=== PATIENT | female | born 1960 | race Two or more races ===

== ENCOUNTER 2017-04-21 20:14 | Emergency (ER) | payer OTHER ==
[2017-04-21 21:05] LABS: ABSOLUTE BASOPHILS # (AUTO) 0.1 10^3/uL (0.0-0.2); ABSOLUTE EOSINOPHILS # (AUTO) 0.5 10^3/uL (0.0-0.6); ABSOLUTE LYMPHOCYTES (AUTO) 2.6 10^3/uL (0.5-4.7); ABSOLUTE MONOCYTES (AUTO) 0.7 10^3/uL (0.1-1.4); ABSOLUTE NEUT (AUTO) 5.6 10^3/uL (1.7-8.2); BASOPHILS % (AUTO) 0.7 % (0-2); EOSINOPHILS % (AUTO) 5.5 % (0-6); HEMOGLOBIN 11.4 g/dL (12.0-15.5); HGB HCT DIFFERENCE -0.8; LYMPHOCYTES % (AUTO) 27.3 % (13-45); MEAN CORPUSCULAR HGB CONC 32.5 g/dL (32.0-36.0); MEAN CORPUSCULAR VOLUME 86 fl (80-97); MONOCYTES % (AUTO) 7.6 % (3-13); RED BLOOD COUNT 4.06 10^6/uL (3.72-5.28); RED CELL DISTRIBUTION WIDTH 13.9 % (11.5-14.0); SEGMENTED NEUTROPHILS % (AUTO) 58.9 % (42-78); WHITE BLOOD COUNT 9.5 10^3/uL (4.0-10.5)
[2017-04-21] MEDS ORDERED: NORMAL SALINE 1000 ML 1,000 ML IV ONE (21:14)
--- NOTE | 2017-04-21 21:17 | ER Document Report ---
ED General - General Chief Complaint: General Weakness Stated Complaint: BLOOD PRESSURE PROBLEMS/WEAKNESS Time Seen by Provider: 04/21/17 20:29 Notes: Patient is a 56-year-old female with a past medical history of hypertension, anxiety and panic attacks who presents with a multitude of complaints including generalized weakness, fatigue, lightheadedness, anxiety, palpitations, and diffuse body paresthesias. States that the symptoms been ongoing for several months but worse today. States that her symptoms are worsened by arguing with her children and do resolve spontaneously. She has not seen a primary care doctor regarding today's concerns. at the bedside reports that he took the patient's blood pressure at home during today's episode and thought that the blood pressures were different in both arms and is concerned about this finding. Patient denies any significant symptoms at the time of my assessment. TRAVEL OUTSIDE OF THE [place] IN LAST 30 DAYS: No Past Medical History - General Information source: Patient - Social History Smoking Status: Never Smoker Frequency of alcohol use: None Drug Abuse: None Lives with: Spouse/Significant other Family History: Reviewed & Not Pertinent Patient has suicidal ideation: No Patient has homicidal ideation: No - Past Medical History Cardiac Medical History: Reports: Hx Hypercholesterolemia, Hx Hypertension Renal/ Medical History: Denies: Hx Peritoneal Dialysis - Immunizations Immunizations up to date: Yes Hx Diphtheria, Pertussis, Tetanus Vaccination: No Review of Systems - Review of Systems Notes: Constitutional: Negative for fever. HENT: Negative for sore throat. Eyes: Negative for visual changes. Cardiovascular: Negative for chest pain. Respiratory: Negative for shortness of breath. Gastrointestinal: Negative for abdominal pain, vomiting or diarrhea. Genitourinary: Negative for dysuria. Musculoskeletal: Negative for back pain. Skin: Negative for rash. Neurological: Negative for headaches, weakness or numbness. Positive for paresthesias 10 point ROS negative except as marked above and in HPI. Physical Exam - Vital signs Vitals: Pulse Ox 94 04/21/17 20:35 Interpretation: Normal Notes: PHYSICAL EXAMINATION: GENERAL: Well-appearing, well-nourished and in no acute distress. HEAD: Atraumatic, normocephalic. EYES: Pupils equal round and reactive to light, extraocular movements intact, sclera anicteric, conjunctiva are normal. ENT: nares patent, oropharynx clear without exudates. Moist mucous membranes. NECK: Normal range of motion, supple without lymphadenopathy LUNGS: Breath sounds clear to auscultation bilaterally and equal. No wheezes rales or rhonchi. HEART: Regular rate and rhythm without murmurs ABDOMEN: Soft, nontender, normoactive bowel sounds. No guarding, no rebound. No masses appreciated. EXTREMITIES: Normal range of motion, no pitting or edema. No cyanosis. NEUROLOGICAL: No focal neurological deficits. Moves all extremities spontaneously and on command. PSYCH: Anxious. SKIN: Warm, Dry, normal turgor, no rashes or lesions noted. Course - Re-evaluation Re-evalutation: 04/21/17 21:14 Patient presents with multiple vague complaints that did not appear to be concerning for any acute life-threatening pathology. Vitals are within normal limits at triage and at time of discharge. Physical examination is unremarkable. Patient has tolerated oral intake without difficulty. Patient was not noted to be in distress at any point during their ER visit. Apparently the was concerned about discordant blood pressures in the bilateral upper extremities. This is not present at the time of my assessment as I measured blood pressures in the bilateral upper extremities at the bedside myself with less than 2 mmHg difference bilaterally. Echocardiogram at the bedside without evidence of a pericardial effusion or tamponade. Laboratories including a single troponin are normal. At this time, based on the reassuring evaluation, I do not suspect an acute FL, pulmonary embolus, aortic dissection, acute intra-abdominal pathology, stroke, or sepsis. Will discharge with return precautions and follow-up recommendations. Verbal discharge instructions given a the bedside and opportunity for questions given. Medication warnings reviewed. Patient is in agreement with this plan and has verbalized understanding of return precautions and the need for primary care follow-up in the next 24-72 hours. - Vital Signs Vital signs: Temp Pulse Resp BP Pulse Ox 27 H 107/61 100 04/21/17 22:31 04/21/17 22:31 04/21/17 22:31 - Laboratory Result Diagrams: 04/21/17 20:15 04/21/17 21:07 Laboratory results interpreted by me: 04/21/17 04/21/17 04/21/17 20:15 21:07 22:01 Hgb 11.4 L Hct 35.0 L Chloride 109 H BUN 35 H Est GFR (Non-Af Amer) 49 L Urine Protein 30 H - Diagnostic Test Radiology reviewed: Image reviewed, Reports reviewed Radiology results interpreted by me: 04/22/17 03:43 Chest x-ray: No acute infiltrate or pneumothorax. No widened mediastinum - EKG Interpretation by Me Additional EKG results interpreted by me: 04/22/17 03:43 Normal sinus rhythm. Rate 90. No ST elevations or depressions. QTC is 436. Discharge - Discharge Clinical Impression: Generalized weakness Fatigue Qualifiers: Fatigue type: unspecified Qualified Code(s): R53.83 - Other fatigue Condition: Good Disposition: HOME, SELF-CARE Additional Instructions: All of your blood work, chest x-ray, bedside echocardiogram and urinalysis are all normal. Please follow-up with your primary care doctor regarding her mildly low blood pressure today and the need for ongoing blood pressure management with the medications you are taking. Please return to the emergency room immediately if you experience any concerning symptoms including high fevers , severe headache, chest pain, difficulty breathing, abdominal pain, slurred speech, numbness or weakness in your arms or legs, or any other symptom that concerns you.
[2017-04-21 21:34] LABS: BLOOD UREA NITROGEN 35 mg/dL (7-20); CALCIUM 9.4 mg/dL (8.4-10.2); CARBON DIOXIDE 23 mmol/L (22-30); CREATININE RESULT 1.13 mg/dL (0.52-1.25); GLUCOSE 108 mg/dL (75-110); POTASSIUM 4.1 mmol/L (3.6-5.0); SODIUM 143.7 mmol/L (137-145)
[2017-04-21 21:37] LABS: ANION GAP 12 (5-19); CHLORIDE 109 mmol/L (98-107)
--- NOTE | 2017-04-21 21:37 | RADIOLOGY REPORT (SQ) ---
EXAM DESCRIPTION: CHEST SINGLE VIEW COMPLETED DATE/TIME: 04/21/2017 9:29 pm REASON FOR STUDY: sob COMPARISON: 07/23/2015 EXAM PARAMETERS: NUMBER OF VIEWS: One view. TECHNIQUE: Single frontal radiographic view of the chest acquired. RADIATION DOSE: NA LIMITATIONS: None. FINDINGS: LUNGS AND PLEURA: No opacities, masses or pneumothorax. No pleural effusion. MEDIASTINUM AND HILAR STRUCTURES: No masses. Contour normal. HEART AND VASCULAR STRUCTURES: Heart normal in size. Normal vasculature. BONES: No acute findings. HARDWARE: Left breast implant noted. EKG leads overlie the chest. OTHER: No other significant finding. IMPRESSION: NO ACUTE RADIOGRAPHIC FINDING IN THE CHEST. TECHNICAL DOCUMENTATION: JOB ID: [id number]
[2017-04-21 22:15] LABS: APPEARANCE,URINE SLIGHTLY-CLOUDY; BILIRUBIN,URINE NEGATIVE (NEGATIVE); GLUCOSE, URINE NEGATIVE (NEGATIVE); KETONES,URINE NEGATIVE (NEGATIVE); LEUKOCYTE ESTERASE,URINE NEGATIVE (NEGATIVE); NITRITE,URINE NEGATIVE (NEGATIVE); PROTEIN,URINE 30 mg/dL (NEGATIVE); URINE SPECIFIC GRAVITY 1.017; UROBILINOGEN,URINE NEGATIVE mg/dL (<2.0)
[2017-04-21 22:34] VITALS: BP 107/61
--- NOTE | 2017-04-21 23:45 | EKG REPORT ---
SEVERITY:- NORMAL ECG - SINUS RHYTHM : Confirmed by: Murali Sandoval 21-Apr-2017 23:44:26
== END 2017-04-21 22:39 | disposition home or self-care (01) ==
LOC: ER 20:14
DX: R53.1 Weakness (principal); R53.83 Other fatigue; R42 Dizziness and giddiness; R00.2 Palpitations; I10 Essential (primary) hypertension
CPT/HCPCS: 93005; 99285; 96360; 36415; 85025; 80048; 81001; 84484; 71010; 93010; J7030

== ENCOUNTER 2017-06-18 08:14 | Day surgery (SDC) | payer OTHER ==
[2017-06-18 09:49] LABS: PROTHROMBIN TIME 11.3 SEC (11.4-15.4)
[2017-06-18 09:50] LABS: PARTIAL THROMBOPLASTIN TIME 27.6 SEC (23.5-35.8)
[2017-06-18 14:16] VITALS: BP 110/71
--- NOTE | 2017-06-18 15:53 | RADIOLOGY REPORT (SQ) ---
EXAM DESCRIPTION: MYELOGRAM LUMBAR; CT LUMBAR SPINE WITH COMPLETED DATE/TIME: 06/18/2017 12:03 pm; 06/18/2017 12:02 pm REASON FOR STUDY: RADICULOPATHY LUMBAR REGION M54.16 RADICULOPATHY, LUMBAR REGION COMPARISON: MRI lumbar spine [facility] 06/03/2017 FLUOROSCOPY TIME: 18 seconds TECHNIQUE: Fluoroscopic guided lumbar myelogram. Postmyelogram lumbar CT with sagittal and coronal reconstructions LIMITATIONS: None. PROCEDURE: After written consent and assessment were obtained, the patient was brought into the fluo roscopy room and placed prone on the table. The patient's lower back was prepped in a sterile fashio n and an entry site was selected under live fluoroscopic guidance. The entry site was anesthetized wi th 3 mL of 1% lidocaine. The 22 gauge spinal needle was advanced through the skin and into the thecal sac at the right paracentral L2-3 level. Contrast was injected into the thecal sac. Following the procedure the needle was removed and a sterile bandage was placed of the site. CONTRAST: 9 mL Isovue M 200. IMAGES ACQUIRED: Multiple fluoroscopic prone, semi-erect, upright lumbar spine images. Lateral uprig ht flexion and extension images. Postmyelogram CT with sagittal and coronal reconstructions TECHNIQUE: After performing lumbar myelogram, axial images were acquired through the lumbar spine wi thout intravenous contrast. Images reviewed with lung, soft tissue and bone windows. Reconstructed coronal and sagittal MPR images reviewed. All images stored on PACS. All CT scanners at this facility use dose modulation, iterative reconstruction, and/or weight based d osing when appropriate to reduce radiation dose to as low as reasonably achievable (ALARA). [facility]: Dose Right [facility]: CareDose [facility]: Dose Right [facility]: Teradose 4D [facility]: Tantaline FINDINGS: Myelogram: Fluoroscopic images demonstrate normal filling of the bilateral L2, L3, and L4 nerve roots. There is moderate central canal narrowing at L3-4 related to broad diffuse disc bulge PA and posterior ligame ntum flavum thickening. On the upright myelogram images, there is a myelographic block encounter at L4-5 with high-grade cent ral canal stenosis. This persisted on the upright flexion and extension images and prone cross-table lateral images focal, related to 25% anterolisthesis of L4 over L5, and prominent dorsal epidural fa t/ligamentum flavum thickening at L4-5. On the fluoroscopic images we were unable to move contrast distally to appropriately visualize the L4 -L5 and S1 nerve roots. Postmyelogram CT: SEGMENTATION: Normal. No transitional anatomy. ALIGNMENT: 25% anterolisthesis of L4 over L5, similar between the prone cross-table, upright flexion and extension, and CT sagittal reconstructions. 10% anterolisthesis of L3 over L4, also similar thro ughout the exam. No instability on flexion extension. VERTEBRAL BODIES: No fractures. No dislocation. No acute findings. HARDWARE: None in the spine. PEDICLES, TRANSVERSE PROCESSES: No fractures. No dislocation. No acute findings. FACETS, POSTERIOR ELEMENTS: No fractures. No dislocation. No spinal stenosis. VISUALIZED RIBS: No fractures. SOFT TISSUES: No significant or acute finding in adjacent soft tissues. DISCS: T11-12: No significant posterior disc bulging. Mild bilateral facet and ligamentum flavum thickenin g. No central or significant foraminal narrowing. T12-L1: Unremarkable L1-L2: Mild bilateral facet hypertrophy. No central or foraminal stenosis. . L2-L3: Mild diffuse posterior disc bulging. Moderate bilateral facet and ligament hypertrophy. Bord gabe central canal narrowing. No foraminal narrowing. L3-L4: Moderate central canal stenosis results from grade 1 anterolisthesis of L3 over L4, bulky bila teral facet and ligament hypertrophy. This is best shown on axial image 54 and sagittal image 18. T here is mild bilateral inferior foraminal narrowing without exiting L3 nerve root impingement. L4-L5: High-grade central canal stenosis results from broad diffuse posterior disc bulge and bony spu rring, and bulky bilateral facet hypertrophy and ligamentum flavum thickening. There is effacement o f the CSF around the lumbar nerve roots on axial image 65 and sagittal reconstruction image 28. Ther e is moderate bilateral foraminal narrowing without exiting L4 nerve root impingement. No truncation of filling of the proximal L4 nerve roots bilaterally. L5-S1: Mild diffuse posterior disc bulging is present. No significant central canal stenosis. Moder ate right, moderate to high-grade left foraminal narrowing with partial effacement of the fat around the exiting left L5 nerve root. OTHER: No other significant finding. IMPRESSION: High-grade central canal stenosis at L4-5, moderate central canal stenosis at L3-4 as ab ove. COMMENT: Patient medication list reviewed: TECHNICAL DOCUMENTATION: JOB ID: [id number] Quality ID # [id number]: Final reports with documentation of one or more dose reduction techniques (e.g., Au tomated exposure control, adjustment of the mA and/or kV according to patient size, use of iterative reconstruction technique) 2010 [employer]- All Rights Reserved
== END 2017-06-18 14:00 | disposition home or self-care (01) ==
LOC: RAD 08:14
PROVIDERS: ATTEND Nuclear Medicine
PROC: B01BYZZ Fluoroscopy of Spinal Cord using Other Contrast (ICD-10-PCS; principal; 2017-06-18)
DX: M54.16 Radiculopathy, lumbar region (principal)
CPT/HCPCS: 36415; 72132; 72265; 85610; 85730

== ENCOUNTER 2017-12-25 11:30 | Emergency (ER) | payer OTHER ==
[2017-12-25 11:38] VITALS: BP 132/86
--- NOTE | 2017-12-25 13:38 | ER Document Report ---
ED Medical Screen (RME) - General Chief Complaint: Anxiety Stated Complaint: ANXIETY Time Seen by Provider: 12/25/17 13:31 Mode of Arrival: Ambulatory Information source: Patient Notes: This is a 57-year-old female with a history of back pain (on gabapentin), history of hypertension, dyslipidemia and anxiety. The patient presents to the emergency room wanting to get off of the gabapentin because she feels like it is making her too lethargic. Patient denies any homicidal or suicidal ideations. The patient also complains of a productive cough over the last several days. She denies fever or shortness of breath. She is a smoker. TRAVEL OUTSIDE OF THE [place] IN LAST 30 DAYS: No - HPI Onset: Last week Onset/Duration: Gradual Quality of pain: No pain Severity: None Pain Level: Denies Associated Symptoms: denies: Chest pain, Fever, Shortness of breath Exacerbated by: Denies Relieved by: Denies Similar symptoms previously: Yes Recently seen / treated by doctor: Yes - Related Data Smoking: Cigarettes Frequency of alcohol use: None Drug Abuse: None Allergies/Adverse Reactions: No Known Allergies Allergy (Verified 12/25/17 13:15) Past Medical History - General Information source: Patient - Social History Cigarette use (# per day): No Chew tobacco use (# tins/day): No Frequency of alcohol use: None Drug Abuse: None Lives with: Family Family history: None - Past Medical History Cardiac Medical History: Reports: Hx Hypercholesterolemia, Hx Hypertension Denies: Hx Coronary Artery Disease, Hx Heart Attack Pulmonary Medical History: Denies: Hx Asthma, Hx Bronchitis, Hx COPD, Hx Pneumonia Neurological Medical History: Denies: Hx Cerebrovascular Accident, Hx Seizures Renal/ Medical History: Denies: Hx Peritoneal Dialysis Musculoskeltal Medical History: Reports Hx Arthritis Surgical Hx: Negative - Immunizations Immunizations up to date: Yes Hx Diphtheria, Pertussis, Tetanus Vaccination: No Review of Systems - Review of Systems Constitutional: denies: Chills, Fever EENT: No symptoms reported Cardiovascular: No symptoms reported Respiratory: No symptoms reported Gastrointestinal: No symptoms reported Genitourinary: No symptoms reported Female Genitourinary: No symptoms reported Musculoskeletal: See HPI Skin: No symptoms reported Hematologic/Lymphatic: No symptoms reported Neurological/Psychological: See HPI Physical Exam - Vital signs Vitals: Temp Pulse Resp BP Pulse Ox 98.8 F 86 16 132/86 H 98 12/25/17 11:36 12/25/17 11:36 12/25/17 11:36 12/25/17 11:36 12/25/17 11:36 Notes: Physical exam: GENERAL: 57-year-old female, alert and oriented 3, no acute distress HEAD: Atraumatic, normocephalic. EYES: Pupils equal round and reactive to light, extraocular movements intact, sclera anicteric, conjunctiva are normal. ENT: TMs normal, nares patent, oropharynx clear without exudates. Moist mucous membranes. NECK: Normal range of motion, supple without obvious mass or JVD. LUNGS: Breath sounds clear to auscultation bilaterally and equal. No wheezes rales or rhonchi. HEART: Regular rate and rhythm without murmurs, rubs or gallops. ABDOMEN: Soft, normoactive bowel sounds. No tenderness to palpation. No guarding, no rebound. No masses appreciated. EXTREMITIES: Normal range of motion, no pitting or edema. No clubbing or cyanosis. NEUROLOGICAL: Cranial nerves II through XII grossly intact. Normal speech, moving all extremities. PSYCH: She appears anxious, but she denies homicidal or suicidal ideations. SKIN: Warm, Dry, normal turgor, no rashes or lesions noted. Course - Vital Signs Vital signs: Temp Pulse Resp BP Pulse Ox 98.8 F 86 16 132/86 H 98 12/25/17 11:36 12/25/17 11:36 12/25/17 11:36 12/25/17 11:36 12/25/17 11:36 Doctor's Discharge - Discharge Clinical Impression: Anxiety, Bronchitis Condition: Stable Disposition: HOME, SELF-CARE Instructions: Anxiety ([facility]) Additional Instructions: As discussed, you cannot just stop the gabapentin. It is important that you wean yourself off the medicine. So, I recommend you taking a 600 mg tablet in the morning and a 600 mg tablet at night (this is reducing only the nighttime dose at first). Do this for 2 days, then start taking the gabapentin 300 mg 3 times a day (I have prescribed 100 mg tablets, so you would be taking 3 tablets 3 times a day) for 3 days. Then take 300 mg (3 tablets) twice daily for 3 days. Then take 200 mg (2 tablets) twice daily for 3 days. Then take 100 mg (1 tablet) twice a day for 4 days. Then take 100 mg at night for 4 days. Then stop. Keep in mind, you have been on this medicine for back pain. If you start having back pain, you may need to restart this medicine but started a low dose. Return to the emergency room for any problems. If you feel like her anxiety is getting worse, return to the ER. Prescriptions: Doxycycline Hyclate 100 mg PO BID #20 capsule Gabapentin 100 mg PO TID #60 capsule
== END 2017-12-25 13:44 | disposition home or self-care (01) ==
LOC: ER 11:30
DX: F41.9 Anxiety disorder, unspecified (principal); J40 Bronchitis, not specified as acute or chronic; M54.9 Dorsalgia, unspecified; F17.200 Nicotine dependence, unspecified, uncomplicated; I10 Essential (primary) hypertension; E78.00 Pure hypercholesterolemia, unspecified
CPT/HCPCS: 99283

== ENCOUNTER 2019-08-23 00:49 | Emergency (ER) | payer OTHER ==
[2019-08-23] MEDS ORDERED: LIDOCAINE 1% INJ-PF (10 MG/ML) 30 ML SDV INJ ONE (01:58)
[2019-08-23] MEDS ORDERED: OXYCODONE-ACETAMINOPHEN 5-325 MG TABLET PO ONE (01:58)
[2019-08-23] MEDS ORDERED: SULFAMETHOXAZOLE/TRIMETHOPRIM 800-160 MG TABLET PO ONE (01:58)
[2019-08-23] MEDS ORDERED: PROMETHAZINE HCL 25 MG TABLET PO ONE (01:58)
--- NOTE | 2019-08-23 02:02 | ER Document Report ---
HPI - HPI Time Seen by Provider: 08/23/19 01:52 Pain Level: 2 Context: Patient is a 59-year-old female that comes to the emergency department for chief complaint of an abscess on her left lower abdomen. She states that there was a hardened area there for almost a month but over the past 2 days it has become red and very tender. Pain radiates down to the hip now as well. She denies fever/chills, nausea/vomiting. She does not have diabetes but she does report having MRSA once 15 years ago. She denies any other complaints. - REPRODUCTIVE Reproductive: DENIES: : Past Medical History - General Information source: Patient - Social History Smoking Status: Former Smoker Chew tobacco use (# tins/day): No Frequency of alcohol use: None Drug Abuse: None Lives with: Family Family History: Reviewed & Not Pertinent Patient has suicidal ideation: No Patient has homicidal ideation: No - Past Medical History Cardiac Medical History: Reports: Hx Hypercholesterolemia, Hx Hypertension Denies: Hx Coronary Artery Disease, Hx Heart Attack Pulmonary Medical History: Denies: Hx Asthma, Hx Bronchitis, Hx COPD, Hx Pneumonia Neurological Medical History: Denies: Hx Cerebrovascular Accident, Hx Seizures Renal/ Medical History: Denies: Hx Peritoneal Dialysis Musculoskeletal Medical History: Reports Hx Arthritis - Immunizations Immunizations up to date: Yes Hx Diphtheria, Pertussis, Tetanus Vaccination: No Vertical Provider Document - CONSTITUTIONAL General Appearance: WD/WN, No Apparent Distress - INFECTION CONTROL TRAVEL OUTSIDE OF THE [place] IN LAST 30 DAYS: No - HEENT HEENT: Atraumatic, Normocephalic - NECK Neck: Normal Inspection - RESPIRATORY Respiratory: Breath Sounds Normal, No Respiratory Distress - CARDIOVASCULAR Cardiovascular: Regular Rate, Regular Rhythm - GI/ABDOMEN Gastrointestinal: Abdomen Soft, Abdomen Tender - Abdomen soft and benign except for the left lower abdomen, in this area there is some induration and fluctuance consistent with a superficial abscess. No surrounding concerning erythema, unremarkable abdomen otherwise. - BACK Back: Normal Inspection - MUSCULOSKELETAL/EXTREMETIES Musculoskeletal/Extremeties: MAEW, FROM, Non-Tender - NEURO Level of Consciousness: Awake, Alert, Appropriate - DERM Integumentary: Warm, Dry, No Rash Course - Re-evaluation Re-evalutation: Patient with a superficial abscess over the left lower abdomen. This was cleaned, drained, dressed. Placed on Bactrim. Discussed expectations, care, follow-up, return precautions. Patient states understanding and agreement. - Vital Signs Vital signs: Temp Pulse Resp BP Pulse Ox 97.5 F 90 18 155/91 H 98 08/23/19 00:59 08/23/19 00:59 08/23/19 00:59 08/23/19 00:59 08/23/19 00:59 Procedures - Incision and Drainage Left lower abdomen Type: Single Anesthetic type: 1% Lidocaine mL's of anesthetic: 7 Blade size: 11 I&D procedure: Shurclens applied, Sterile dressing applied Incision Method: Incision made by scalpel Amount/type of drainage: About 4 cc of purulent drainage mixed with blood Discharge - Discharge Clinical Impression: Abscess Condition: Stable Disposition: HOME, SELF-CARE Additional Instructions: Your evaluation is consistent with an abscess, the source appears to be a cyst. This was drained, keep clean, clean with soap and water, keep absorbing dressing over the area. Take antibiotics as prescribed. This cyst might occur again, if it does follow-up with the listed referral. Return if you worsen including developing or spreading redness, fever/chills, or any other concerning or worsening symptoms. Prescriptions: Sulfamethoxazole/Trimethoprim [Bactrim Ds Tablet] 1 each PO BID #14 tablet Referrals: AYDEN GARCIA DO [ACTIVE STAFF] - Follow up as needed
[2019-08-23 03:17] VITALS: BP 127/71
== END 2019-08-23 03:20 | disposition home or self-care (01) ==
LOC: ER 00:49
DX: L02.211 Cutaneous abscess of abdominal wall (principal); E78.00 Pure hypercholesterolemia, unspecified; I10 Essential (primary) hypertension
CPT/HCPCS: 10060; J3490; 99282